=== PATIENT | male | born 1985 | race African-American/Black ===

== ENCOUNTER 2017-05-13 14:09 | Emergency (ER) | payer BC, OTHER ==
[~2017-05-13] VITALS: Ht 170.2 cm; Wt 69.4 kg
[2017-05-13 14:55] LABS: URINE BILIRUBIN NEGATIVE (Negative); URINE BLOOD 3+ (Negative); URINE COLOR YELLOW; URINE GLUCOSE-RANDOM* NEGATIVE (Negative); URINE KETONES NEGATIVE (Negative); URINE NITRITE NEGATIVE (Negative); URINE PROTEIN (DIPSTICK) NEGATIVE (Negative); URINE SPECIFIC GRAVITY 1.025 (1.003-1.035)
[2017-05-13 15:09] LABS: CASTS None Seen /LPF (None Seen); SQUAMOUS 4-10 Moderate /LPF (0-3); URINE RBC >20 Many /HPF (0-2); WBC CLUMPS Few (None Seen)
[2017-05-13 15:10] LABS: BACTERIA 1-9 Few /HPF (None Seen); CRYSTALS None Seen /LPF (None Seen)
[2017-05-13 15:19] LABS: ABSOLUTE NEUTROPHILS 1.8 thou/uL (1.4-8.2); BASOPHILS 1.4 % (0.0-2.0); EOSINOPHILS 7.1 % (0.0-3.0); HEMATOCRIT 43.4 % (42.0-52.0); HEMOGLOBIN 14.8 gm/dL (14.0-18.0); LYMPHOCYTES 43.8 % (24.0-44.0); MCH 30.4 pg (26.0-34.0); MCHC 34.1 g/dL (28.0-37.0); MCV 89.3 fL (80.0-100.0); MONOCYTES 11.7 % (1.0-8.0); PLATELET COUNT 208 thou/uL (150-400); RBC 4.86 mil/uL (4.50-6.00); RDW 13.4 % (10.5-14.5); WBC 5.1 thou/uL (4.0-11.0)
[2017-05-13 15:20] LABS: MANUAL DIFF NO
[2017-05-13 15:28] LABS: CALCIUM 9.4 mg/dL (8.5-10.1); POTASSIUM 4.1 mmol/L (3.5-5.1)
[2017-05-13] MEDS ORDERED: BACTRIM DS TAB1 EACH PO (15:55)
[2017-05-13] MEDS ORDERED: NORCO 5-325 TA1 EACH PO (15:57)
[2017-05-13 16:14] VITALS: BP 118/68
== END 2017-05-13 16:15 | disposition home or self-care (01) ==
LOC: ER 14:09
PROVIDERS: Nurse Practitioner
DX: S30.1XXA Contusion of abdominal wall, initial encounter (principal); N39.0 Urinary tract infection, site not specified; F17.210 Nicotine dependence, cigarettes, uncomplicated; F10.99 Alcohol use, unspecified with unspecified alcohol-induced disorder; F12.10 Cannabis abuse, uncomplicated; Y08.02XA Assault by strike by baseball bat, initial encounter; Y93.89 Activity, other specified; Y92.89 Other specified places as the place of occurrence of the external cause; Y99.8 Other external cause status